=== PATIENT | male | born 1950 | race Caucasian/White ===

== ENCOUNTER 2016-10-12 21:36 | Emergency (ER) | payer OTHER, BC ==
[2016-10-12 21:36] VITALS: O2SAT 95
[2016-10-12] MEDS ORDERED: LIDOCAINE HCL 2% MPF SOL ONE (22:01)
[2016-10-12 22:09] VITALS: BP 149/86; PULSE 75; RESP 20; TEMP 97.4
[2016-10-12] MEDS ORDERED: LIDOCAINE HCL 2% MPF SOL SC ONE ×2 (22:09→23:51)
[2016-10-12] MEDS ORDERED: BACITRACIN 500 U/GM OIN TOP ONE ×2 (23:31→23:52)
[2016-10-12] MEDS ORDERED: LEVOFLOXACIN 500 MG TAB PO ONE (23:52)
[2016-10-12] MEDS ORDERED: TDAP VACCINE 0.5 ML SUS IM ONE ×2 (23:52→23:54)
[2016-10-12] MEDS ORDERED: LEVOFLOXACIN 500 MG TAB ONE (23:54)
== END 2016-10-13 00:14 | disposition home or self-care (01) ==
LOC: ED 21:36
DX: S92.421B Displaced fracture of distal phalanx of right great toe, initial encounter for open fracture (principal); W20.8XXA Other cause of strike by thrown, projected or falling object, initial encounter
CPT/HCPCS: 12001; 73660; 90471; 90715; 99284; A6402

== ENCOUNTER 2016-11-03 09:39 | Outpatient (CLI) | payer BC | END 2016-11-03 09:40 | disposition home or self-care (01) | LOC: CONVCARE 09:39 | PROVIDERS: ATTEND Orthopaedic Surgery | DX: S92.424D Nondisplaced fracture of distal phalanx of right great toe, subsequent encounter for fracture with routine healing (principal) | CPT/HCPCS: 73660 ==

== ENCOUNTER 2016-12-01 10:17 | Outpatient (CLI) | payer OTHER, BC ==
[2016-12-01] MEDS ORDERED: CEFAZOLIN SODIUM 1 GM PDS IV ONE (12:22)
[2016-12-01 13:36] VITALS: BP 145/85; PULSE 72; RESP 20; TEMP 97.2
== END 2016-12-01 13:53 | disposition home or self-care (01) | DRG 603 ==
LOC: CONVCARE 10:17
PROVIDERS: ATTEND Orthopaedic Surgery
DX: L03.031 Cellulitis of right toe (principal); S92.401D Displaced unspecified fracture of right great toe, subsequent encounter for fracture with routine healing; S91.201D Unspecified open wound of right great toe with damage to nail, subsequent encounter
CPT/HCPCS: 73660; 87070; 87075; 87077; 87186; 99001; 99070; J0690

== ENCOUNTER 2016-12-29 11:06 | Outpatient (CLI) | payer OTHER, BC | END 2016-12-29 11:07 | disposition home or self-care (01) | DRG 563 | LOC: CONVCARE 11:06 | PROVIDERS: ATTEND Orthopaedic Surgery | DX: S92.424B Nondisplaced fracture of distal phalanx of right great toe, initial encounter for open fracture (principal) | CPT/HCPCS: 73660 ==